=== PATIENT | male | born 1980 | race Caucasian/White ===

== ENCOUNTER 2018-09-11 12:11 | Emergency (ER) | payer SELFPAY ==
[2018-09-11] MEDS ORDERED: Ketorolac Tromethamine 60 MG/2 ML VIAL ONE (12:28)
[2018-09-11] MEDS ORDERED: traMADol HCl 50 MG TAB ONE (12:28)
== END 2018-09-11 12:42 | disposition home or self-care (01) ==
LOC: BURERS 12:11
DX: M54.5 Low back pain (principal); F17.210 Nicotine dependence, cigarettes, uncomplicated
CPT/HCPCS: 96372; J1885

== ENCOUNTER 2018-11-28 01:51 | Emergency (ER) | payer SELFPAY ==
[2018-11-28] MEDS ORDERED: Nitroglycerin 0.4 MG TAB 1 EACH ONE (02:29)
[2018-11-28] MEDS ORDERED: Aspirin Chewable 81 MG TAB ONE (02:29)
[2018-11-28 02:37] LABS: #Basophils 0.1 thou/uL (0.0-0.2); #Eosinphils 0.5 thou/uL (0.0-0.7); #Lymphocytes 3.1 thou/uL (1.20-3.40); #Monocytes 0.5 thou/uL (0.11-0.59); #Neutrophils 4.5 thou/uL (1.40-6.50); %Basophils 1.3 % (0.0-1.0); %Eosinophils 6.1 % (0.0-10.0); %Lymphocytes 35.7 % (21.0-51.0); %Monocytes 5.3 % (0.0-10.0); %Neutrophils 51.6 % (42.0-75.0); Hemoglobin 15.6 g/dL (14.0-18.0); Mean Corpuscular HGB CONC 32.9 g/dL (32.0-36.0); Mean Corpuscular Hemoglobin 30.4 pg (27.0-31.0); Mean Corpuscular Volume 92.4 fL (78.0-98.0); Mean Platelet Volume 7.3 fL (7.4-10.4); Platelet Count 297 thou/uL (130-400); RBC Distribution Width 12.5 % (11.5-14.5); Red Blood Cell (RBC) Count 5.15 mill/uL (4.70-6.10); White Blood Cell (WBC) Count 8.8 thou/uL (4.8-10.8)
[2018-11-28 02:50] LABS: ALT (SGPT) 39 U/L (8-55); AST (SGOT) 31 U/L (5-34); Albumin 4.3 g/dL (3.5-5.0); Alkaline Phosphatase 153 U/L (40-150); Anion Gap 16 mmol/L (10-20); BUN (Urea Nitrogen) 18 mg/dL (8.9-20.6); Bilirubin, Total Less than 0.2 mg/dL (0.2-1.2); CK (CPK) 525 U/L (30-200); Calc. Creatinine Clearance 0 mL/min (70-130); Calcium 9.5 mg/dL (7.8-10.44); Carbon Dioxide 25 mmol/L (22-29); Chloride 103 mmol/L (98-107); Estimated GFR-MDRD 85; Globulin 3.7 g/dL (2.4-3.5); Glucose 124 mg/dL (70-105); Lipase 40 U/L (8-78); Potassium 4.4 mmol/L (3.5-5.1); Sodium 140 mmol/L (136-145)
--- NOTE | 2018-11-28 07:53 | RAD ---
PORTABLE CHEST: DATE: 11/28/2018. FINDINGS: An AP portable film at 1419 shows a normal-sized heart and clear lungs. No infiltrate or effusion wa s seen. There is no vascular congestion or edema. The trachea is midline. IMPRESSION: No acute thoracic findings. POS: HOME
== END 2018-11-28 04:00 | disposition short-term general hospital (02) ==
LOC: BURERS 01:51
DX: R07.89 Other chest pain (principal); F17.210 Nicotine dependence, cigarettes, uncomplicated
CPT/HCPCS: 71045; 80053; 82550; 83690; 84484; 85025; 93005

== ENCOUNTER 2019-03-09 11:52 | Emergency (ER) | payer SELFPAY | END 2019-03-09 12:31 | disposition home or self-care (01) | LOC: BURERS 11:52 | DX: H92.02 Otalgia, left ear (principal); H62.42 Otitis externa in other diseases classified elsewhere, left ear; Z71.6 Tobacco abuse counseling; F17.210 Nicotine dependence, cigarettes, uncomplicated | CPT/HCPCS: 99406 ==

== ENCOUNTER 2019-05-04 15:01 | Emergency (ER) | payer SELFPAY ==
[2019-05-04] MEDS ORDERED: Ketorolac Tromethamine 60 MG/2 ML VIAL ONE (15:23)
--- NOTE | 2019-05-04 18:43 | RAD ---
LUMBAR SPINE THREE VIEWS: 05/04/19 No fracture or dislocation was seen. There is disc space narrowing at L4-L5. The other disc spaces ap pear normal. There are no arthritic changes of significance. The SI joints appear normal. IMPRESSION: L4-L5 disc space narrowing. POS: HOME
== END 2019-05-04 15:47 | disposition home or self-care (01) ==
LOC: BURERS 15:01
DX: M62.830 Muscle spasm of back (principal); F17.210 Nicotine dependence, cigarettes, uncomplicated; W20.8XXA Other cause of strike by thrown, projected or falling object, initial encounter
CPT/HCPCS: 72100; 96372; J1885

== ENCOUNTER 2020-04-27 12:15 | Emergency (ER) | payer BC, SELFPAY ==
[2020-04-27] MEDS ORDERED: Ketorolac Tromethamine 30 MG/ML VIAL ONE (13:21)
[2020-04-27] MEDS ORDERED: Morphine 4 MG/ML VIAL ONE (13:21)
[2020-04-27] MEDS ORDERED: Morphine 2 MG/ML VIAL ONE (13:21)
[2020-04-27] MEDS ORDERED: predniSONE 20 MG TAB ONE (13:21)
== END 2020-04-27 14:15 | disposition home or self-care (01) ==
LOC: BURERS 12:15
DX: M54.5 Low back pain (principal); F17.210 Nicotine dependence, cigarettes, uncomplicated
CPT/HCPCS: 96372; 99283; J1885; J2270; J7512

== ENCOUNTER 2022-02-24 10:50 | Emergency (ER) | payer BC, SELFPAY | END 2022-02-24 12:01 | disposition home or self-care (01) | LOC: BURERS 10:50 | DX: B34.9 Viral infection, unspecified (principal); F17.210 Nicotine dependence, cigarettes, uncomplicated | CPT/HCPCS: 87081; 87430; 87804 ==

== ENCOUNTER 2023-10-27 20:36 | Emergency (ER) | payer SELFPAY ==
[2023-10-27] MEDS ORDERED: Boostrix 0.5 ML (Tdap) VIAL (>/=7 yrs of age) ONE (21:12)
[2023-10-27] MEDS ORDERED: Bupivacaine 0.5% 10 ML VIAL ONE (21:20)
[2023-10-27] MEDS ORDERED: Amoxicillin/Potassium Clav 875 MG TAB ONE (21:45)
== END 2023-10-27 22:05 | disposition home or self-care (01) ==
LOC: BURERS 20:36
DX: S61.452A Open bite of left hand, initial encounter (principal); S61.012A Laceration without foreign body of left thumb without damage to nail, initial encounter; S61.412A Laceration without foreign body of left hand, initial encounter; F17.210 Nicotine dependence, cigarettes, uncomplicated; W54.0XXA Bitten by dog, initial encounter; Z23 Encounter for immunization
CPT/HCPCS: 12002; 90471; 90715; J3490